=== PATIENT | female | born 1960 | race Caucasian/White ===

== ENCOUNTER → 2018-02-15 | Outpatient (CLI) | payer BC ==
[2018-02-15 10:51] LABS: Blood Urea Nitrogen 29 mg/dL (7-17)
--- NOTE | 2018-02-15 12:24 | MR ---
EXAMINATION TYPE: MR brain/orbits wo/w con DATE OF EXAM: 02/15/2018 COMPARISON: NONE HISTORY: Ischemic optic neuropathy, vision loss TECHNIQUE: Multiplanar, multisequence images of the brain and orbits is performed without and with IV contrast, utilizing 8.5 mL intravenous Gadavist . FINDINGS: Diffusion weighted images demonstrate no evidence of a recent infarct or other diffusion ab normality. There is no extra-axial fluid collection. Scattered hyperintensities are present on inve rsion recovery and T2-weighted sequences within the periventricular, pericallosal, subcortical white matter, there are approximately 40-50 lesions present. The ventricular system and cisternal spaces ar e normal in size and appearance. The brain volume is age appropriate, there is mild atrophy. Midline structures demonstrate normal morphology. The craniocervical junction appears within normal limits. Post contrast images demonstrate no abnormal enhancement. The dural venous sinuses appear pa tent. The visualized sinuses are remarkable for some mucosal thickening in the maxillary sinus, ethmo id air cells and the globes are intact. The orbits show symmetric appearance. No abnormal enhancement. IMPRESSION: Nonspecific white matter demyelination, consider multiple sclerosis in the appropriate cl inical setting, migraine headaches, hypertension, chronic small vessel ischemia and vasculitis. Mild sinus disease. Follow-up as indicated.
== END ==
LOC: RADMRIMAIN 10:19
PROVIDERS: ATTEND Ophthalmology
DX: H47.019 Ischemic optic neuropathy, unspecified eye (principal); H54.7 Unspecified visual loss
CPT/HCPCS: 82565; 84520; 70543; 70553; A9581

== ENCOUNTER → 2018-05-31 | Outpatient (CLI) | payer OTHER ==
--- NOTE | 2018-05-31 07:37 | MR ---
EXAMINATION TYPE: MR cervical spine wo con DATE OF EXAM: 05/31/2018 COMPARISON: None HISTORY: Diego arm and hand numbness, neck pain into shoulder blades TECHNIQUE: Multiplanar, multisequence images of the cervical spine were acquired. FINDINGS: The cervical spine vertebral bodies maintain normal vertebral body height and alignment. Th ere is multilevel disc desiccation. Posterior fossa is grossly unremarkable in its visualized portion s other than few prominent arachnoid granulations. Bone marrow signal is within normal limits. Cervic al spine signal is maintained. C2-C3: Very small central posterior disc osteophyte complex is seen as well as mild left neural bon inal narrowing secondary to uncovertebral hypertrophy and facet arthropathy. No right-sided neural fo raminal narrowing or spinal canal stenosis. C3-C4: There is a small broad-based disc bulge and small posterior disc osteophyte complex without sp inal canal stenosis or neural foraminal narrowing. C4-C5: There is uncovertebral hypertrophy, left greater than right and facet arthropathy in combinati on with a broad-based disc bulge creating mild spinal canal stenosis and mild right neural foraminal narrowing as well as moderate left neural foraminal narrowing. C5-C6: There is a left eccentric broad-based disc bulge, uncovertebral hypertrophy, and facet arthrop athy creating mild spinal canal stenosis, moderate left neural foraminal narrowing and minimal right neural foraminal narrowing. C6-C7: There is a left paracentral disc herniation extending into the lateral recess and left neural foramen creating moderate left neural foraminal narrowing and mild spinal canal stenosis abutting the ventral cervical cord and narrowing the ventral subarachnoid space. Right neural foramen is patent. C7-T1: There is a small annular tear and right paracentral disc herniation with only minimal narrowin g of the ventral subarachnoid space. No significant spinal canal stenosis or neural foraminal narrowi ng. Mild uncovertebral hypertrophy is seen on the left. IMPRESSION: 1. Left paracentral disc herniation at C6-C7 resulting in moderate left neural foraminal narrowing an d mild spinal canal stenosis. 2. Degenerative disc disease with broad-based disc bulges and uncovertebral hypertrophy as well as fa cet arthropathy at C4-C5 and C5-C6 resulting in mild spinal canal stenosis and moderate left neural f oraminal narrowing at these levels. 3. Small right paracentral disc herniation at C7-T1 without spinal canal stenosis or neural foraminal narrowing.
== END ==
LOC: RADMRIMAIN 06:01
PROVIDERS: ATTEND Psychiatry & Neurology Neurology
DX: M48.02 Spinal stenosis, cervical region (principal); M99.73 Connective tissue and disc stenosis of intervertebral foramina of lumbar region; M50.221 Other cervical disc displacement at C4-C5 level; M46.92 Unspecified inflammatory spondylopathy, cervical region
CPT/HCPCS: 72141

== ENCOUNTER → 2018-06-24 | Outpatient (CLI) | payer BC, OTHER ==
--- NOTE | 2018-06-24 15:01 | XR ---
EXAMINATION TYPE: XR chest 2V DATE OF EXAM: 06/24/2018 COMPARISON: Chest x-ray May 21, 2011 HISTORY: Shortness of breath for 2 years. TECHNIQUE: Frontal and lateral views of the chest are obtained. FINDINGS: There is no focal air space opacity, pleural effusion, or pneumothorax seen. The cardiac silhouette size is within normal limits. The osseous structures are intact. IMPRESSION: No acute cardiopulmonary process. No significant change from prior.
== END | disposition home or self-care (01) ==
LOC: RADXRMAIN 14:40
PROVIDERS: ATTEND Family Medicine
DX: R06.00 Dyspnea, unspecified (principal)
CPT/HCPCS: 71046

== ENCOUNTER → 2019-07-26 | Outpatient (CLI) | payer OTHER ==
--- NOTE | 2019-07-29 13:02 | MR ---
EXAMINATION TYPE: MR cervical spine wo/w con DATE OF EXAM: 07/26/2019 COMPARISON: MRI cervical spine 05/31/2018 HISTORY: Cervical disc herniation TECHNIQUE: Multiplanar, multisequence images of the cervical spine were acquired utilizing 10 mL intravenous Cecil avist gadolinium contrast. FINDINGS: Interval C4-C7 ACDF, with hardware would be better assessed by radiography or CT. Blooming artifact l imits assessment. Straightening of the normal cervical lordosis. No pathologic bone marrow signal abn ormalities given previously stated limitations. No cervical spinal cord signal abnormalities or abnormal enhancement. The right vertebral artery flow-void is not well-visualized, also present previously. C2-C3: Eccentric left posterior disc osteophyte complex impresses upon the ventral thecal sac but araujo s not contact or deform the cervical spinal cord. Neuroforamen are patent. C3-C4: Central canal zone disc protrusion contacts the ventral spinal cord, flattening it and uncover tebral spurs contribute to mild bilateral neural foraminal stenosis. C4-C5: Improved spinal canal patency with visualization of the subarachnoid space surrounding the spi nal cord. Uncovertebral spurs contribute to stable mild bilateral neuroforaminal stenosis. C5-C6: Improved spinal canal patency with visualization of the subarachnoid space surrounding the spi nal cord. Uncovertebral spurs contribute to stable moderate bilateral neural foraminal stenosis. C6-C7: Improved spinal canal patency with visualization of the subarachnoid space surrounding the spi nal cord; there is persistent left disc osteophyte complex present however. This finding, in conjunct ion with uncovertebral spurs contribute to mild right and moderate left neural foraminal stenosis, un changed. C7-T1: Eccentric right posterior disc osteophyte complex impresses upon the ventral thecal sac howeve r does not contact the cervical spinal cord. Unchanged from prior. Patent neuroforamen. IMPRESSION: 1. Postsurgical changes related to C4-C7 ACDF. There is improved patency of the cervical spinal canal at these levels. 2. New junctional central disc herniation at C3-C4 which contacts and mildly deforms the cervical spi nal cord. 3. Degenerative changes elsewhere are stable.
== END | disposition home or self-care (01) ==
LOC: RADMRIMAIN 10:40
PROVIDERS: ATTEND Psychiatry & Neurology Neurology
DX: M50.21 Other cervical disc displacement, high cervical region (principal); M47.812 Spondylosis without myelopathy or radiculopathy, cervical region; Z98.1 Arthrodesis status
CPT/HCPCS: 72156; A9585

== ENCOUNTER → 2019-10-07 | Outpatient (CLI) | payer OTHER ==
--- NOTE | 2019-10-08 10:13 | MM ---
Reason for exam: screening (asymptomatic). Last mammogram was performed 3 years and 6 months ago. History: Patient is postmenopausal and is nulliparous. Family history of breast cancer in sister at age 49. Physical Findings: A clinical breast exam by your physician is recommended on an annual basis and results should be correlated with mammographic findings. MG 3D Screening Mammo W/Cad Bilateral CC and MLO view(s) were taken. Prior study comparison: April 18, 2016, left breast MG 3d work up w/cad LT. April 13, 2016, bilateral MG screening mammo w CAD. The breast tissue is heterogeneously dense. This may lower the sensitivity of mammography. No suspicious abnormality. No significant changes when compared with prior studies. ASSESSMENT: Negative, BI-RAD 1 RECOMMENDATION: Routine screening mammogram of both breasts in 1 year.
== END | disposition home or self-care (01) ==
LOC: RADMAMWWP 13:24
PROVIDERS: ATTEND Family Medicine
DX: Z12.31 Encounter for screening mammogram for malignant neoplasm of breast (principal)
CPT/HCPCS: 77063; 77067

== ENCOUNTER → 2021-05-05 | Outpatient (CLI) | payer MEDICARE ==
--- NOTE | 2021-05-05 17:10 | XR ---
EXAMINATION TYPE: XR lumbar spine 2 or 3V DATE OF EXAM: 05/05/2021 COMPARISON: None HISTORY: Lumbago TECHNIQUE: 3 view lumbar spine FINDINGS: There are 5 lumbar-type vertebral bodies. The pedicles are intact. There is attempted sacra lization of L5 on the left. Degenerative disc changes are present L3-4 L4-5. Remaining disc heights a ppear preserved. Vertebral body heights are preserved. Alignment is normal. IMPRESSION: 1. Degenerative disc changes L3-4 L4-5.
== END | disposition home or self-care (01) ==
LOC: RADXRMAIN 13:07
PROVIDERS: ATTEND Family Medicine
DX: M47.816 Spondylosis without myelopathy or radiculopathy, lumbar region (principal)
CPT/HCPCS: 72100

== ENCOUNTER → 2021-08-30 | Outpatient (CLI) | payer MEDICARE ==
--- NOTE | 2021-08-30 13:53 | US ---
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 EXAM MEASUREMENTS: RIGHT: Peak Systolic Velocity (PSV) cm/sec ----- Right CCA: 82.3 ----- Right ICA: 79.2 ----- Right ECA: 94.7 ICA/CCA ratio: 1.0 RIGHT: End Diastole cm/sec ----- Right CCA: 16.9 ----- Right ICA: 26.3 ----- Right ECA: 12.3 LEFT: Peak Systolic Velocity (PSV) cm/sec ----- Left CCA: 77.6 ----- Left ICA: 74.3 ----- Left ECA: 107.6 ICA/CCA ratio: 1.0 LEFT: End Diastole cm/sec ----- Left CCA: 19.3 ----- Left ICA: 27.0 ----- Left ECA: 18.7 VERTEBRALS (direction of flow): Right Vertebral: Antegrade Left Vertebral: Antegrade Rhythm: Normal Segovia scale images show mild eccentric plaque bilateral carotid bulb level No elevated velocities IMPRESSION: No hemodynamically significant stenosis in either internal carotid artery. Criteria for Assigning % of Stenosis / Diameter reduction (Estimation based on the indirect measurements of the internal carotid artery velocities (ICA PSV). 1. Normal (no stenosis)=ICA PSV < 125 cm/s: ratio < 2.0: ICA EDV<40 cm/s. 2. Less than 50% stenosis=ICA PSV < 125 cm/s: ratio < 2.0: ICA EDV<40 cm/s. 3. 50 to 69% stenosis=ICA PSV of 125 to 230 cm/s: ration 2.0 ? 4.0: ICA EDV 40-100 cm/s. 4. Greater than 70% stenosis to near occlusion= ICA PSV > 230 cm/s: ratio > 4.0: ICA EDV > 100 cm/s. 5. Near occlusion= ICA PSV velocities may be low or undetectable: variable ratio and ICA EDV. 6. Total occlusion=unable to detect flow.
== END | disposition home or self-care (01) ==
LOC: RADUSWWP 11:59
PROVIDERS: ATTEND Ophthalmology
DX: I65.23 Occlusion and stenosis of bilateral carotid arteries (principal)
CPT/HCPCS: 93880

== ENCOUNTER → 2021-11-03 | Outpatient (CLI) | payer MEDICARE ==
--- NOTE | 2021-11-03 10:23 | US ---
EXAMINATION TYPE: US abdomen complete DATE OF EXAM: 11/03/2021 COMPARISON: NONE CLINICAL HISTORY: R10.13 EPIGASTRIC PAIN. EXAM MEASUREMENTS: Liver Length: 14.9 cm Gallbladder Wall: 0.3 cm CBD: 0.3 cm Spleen: 8.4 cm Right Kidney: 11.5 x 4.5 x 4.4 cm Left Kidney: 11.3 x 5.8 x 4.7 Pancreas: Tail obscured by overlying bowel gas Liver: wnl Gallbladder: stone Evidence for sonographic Ko's sign: no CBD: wnl Spleen: wnl Right Kidney: portions visualized wnl, somewhat obscure by overlying bowel gas Left Kidney: portions visualized wnl, somewhat obscure by overlying bowel gas Upper IVC: wnl Abd Aorta: distal and bifurcation obscured by overlying bowel, arthrosclerotic changes noted The liver is homogenous. The intrahepatic portion of the IVC and proximal abdominal aorta are within normal limits. There is no evidence of cholelithiasis. Common bile duct is unremarkable. The visu alized portions of the pancreas are homogenous. The spleen is unremarkable. Kidneys are symmetric a nd free of hydronephrosis. No renal lesions are seen. IMPRESSION: No distinct abnormality appreciated.
== END | disposition home or self-care (01) ==
LOC: RADUSWWP 09:33
PROVIDERS: ATTEND Family Medicine
DX: R10.13 Epigastric pain (principal)
CPT/HCPCS: 76700

== ENCOUNTER → 2022-03-23 | Outpatient (CLI) | payer MEDICARE, OTHER ==
--- NOTE | 2022-03-24 06:32 | US ---
EXAMINATION TYPE: US pelvic complete DATE OF EXAM: 03/23/2022 COMPARISON: NONE CLINICAL HISTORY: R11.0 NAUSEA. Nausea x couple years, endometriosis, no pregnancies TECHNIQUE: . Transabdominal sonographic images of the pelvis were acquired. Date of LMP: EXAM MEASUREMENTS: Uterus: 5.6 x 2.5 x 3.6 cm Endometrial Stripe: 0.4 cm Right Ovary: 3.0 x 1.4 x 2.8 cm Left Ovary: 3.0 x 1.8 x 2.1 cm 1. Uterus: anteverted 2. Endometrium: wnl 3. Right Ovary: wnl 4. Left Ovary: wnl 5. Bilateral Adnexa: wnl 6. Posterior cul-de-sac: wnl IMPRESSION: Unremarkable transabdominal pelvic ultrasound in postmenopausal female.
== END | disposition home or self-care (01) ==
LOC: RADUSWWP 15:23
PROVIDERS: ATTEND Family Medicine
DX: R11.0 Nausea (principal); Z78.0 Asymptomatic menopausal state
CPT/HCPCS: 76856

== ENCOUNTER → 2022-09-08 | Outpatient (CLI) | payer MEDICARE, OTHER ==
--- NOTE | 2022-09-08 14:36 | MR ---
MR left humerus HISTORY: Palpable lump, benign lipomatosis neoplasia of skin Multiplanar multisequence and postcontrast images obtained through the region of the proximal and mid humerus, patient received 19 cc gadolinium based IV Correlation ultrasound 07/20/2022 At the level of the upper portion of the left upper extremity anteriorly there is a mass measuring ap proximately 9 cm x 6.8 x 4.8 cm which follows fat signal on all pulse sequences. No significant abnor mal enhancement or soft tissue component. Bone marrow signal is maintained. IMPRESSION: Findings consistent with lipoma.
== END | disposition home or self-care (01) ==
LOC: RADMRIMAIN 07:52
PROVIDERS: ATTEND Surgery Plastic and Reconstructive Surgery
DX: D17.22 Benign lipomatous neoplasm of skin and subcutaneous tissue of left arm (principal)
CPT/HCPCS: 73220; A9585

== ENCOUNTER → 2022-09-18 | Outpatient (CLI) | payer MEDICARE, OTHER ==
--- NOTE | 2022-09-19 05:07 | MR ---
EXAMINATION TYPE: MR cervical spine wo con DATE OF EXAM: 09/18/2022 COMPARISON: 07/26/2019 HISTORY: Neck pain, pain & numbness throughout entire body and extremities, history of surgery Multiplanar multiecho imaging of the cervical spine without contrast. The cervical vertebra have normal alignment. There is metal artifact from anterior fusion surgery fro m 4 to C7. There is mild narrowing of disc spaces from C4 to C7. Cervical cord shows normal signal pa ttern. No edema. There are small posterior disc bulging and herniation at C3-4. Spinal canal measures 8 mm at C3-4. There is also posterior disc bulging and herniation at C6-7 and the canal measures 8 m m. No significant spinal stenosis. There is developmentally adequate spinal canal. The brainstem is i ntact. No compression fracture. No evidence of cervical paraspinal mass. IMPRESSION: Posterior disc bulging and herniation at C3-4 and C6-7 without much change compared to old exam. No s jessi stenosis. Multilevel fusion surgery. No fracture.
== END | disposition home or self-care (01) ==
LOC: RADMRIMAIN 21:15
PROVIDERS: ATTEND Family Medicine
DX: M50.323 Other cervical disc degeneration at C6-C7 level (principal)
CPT/HCPCS: 72141

== ENCOUNTER → 2023-07-11 | Outpatient (CLI) | payer MEDICARE, OTHER ==
[2023-07-11 10:52] VITALS: BP 147/80; PULSE 92; RESP 15; TEMP 97.5
--- NOTE | 2023-07-11 14:41 | P.PAINPG ---
PQRS Measure Charge Sheet Comment: HISTORY OF PRESENT ILLNESS: 63 yr old female as a referral from Dr Samano presents today w severe and chronic LBP secondary to DDD, spondylosis and facet arthropathy without myelopathy for evaluation. Pt states pain level is provoked at 6/10 in intensity, constant, localized in the lower lumbar spine, achy, burning in character w shooting pain towards the BL hips and LEs. Pain is provoked by lifting, bending, standing, walking. Pain is alleviated by medications (Mobic), topical, LESIs in margot past, heat, ice, PT in 2020 but is currently $90/ wk and too expensive for pt to maintain, physician guided home exercise regimen 3 times weekly since 2020, massage weekly since 2020, repositioning, sitting and rest. Oswestry axial pain score at 20. PMH: OA, HTN, Hyperlipidemia, DM II, GERD, Vitamin D Deficiency PSH: EGD/ Colonoscopy (2020), Cervical Discectomy, R Finger Surgery SH: 12 yrs of ETOH sobriety, Dipping Tobacco use, Cannabis use FH: CAD, DM II, CA All: See list Meds: See list REVIEW OF ORGAN SYSTEMS: CONSTITUTIONAL: No fevers or chills. No recent weight loss. NEUROLOGICAL: + numbness and tingling along the distal extremities. No seizure disorders or headaches. MUSCULOSKELETAL: + pain PSYCHIATRIC: Denies current depression or suicidal thoughts. Physical Examinations : Constitutional : Cooperative , not in acute distress . Neurologic : Cranial nerve II to XII intact. No focal neurological deficits. Psychiatric : alert & oriented x 3. Matching mood & appropriate affect. Judgment & insight intact. Musculoskeletal : Cervical Spine Motor strength in the deltoid and biceps: Normal right side. Normal Left side Motor strength biceps and the wrist extensors: Normal right side . Normal left side Motor strength in the triceps muscle: Normal right side. Normal left side Deep tendon reflexes: Normal at the biceps. Normal at Brachioradialis. Normal at triceps Vertebral body tenderness to deep palpation over Cervical facet loading test: positive bilaterally Spurling test: positive bilaterally Neck distraction test: positive bilaterally Ti sign: positive bilaterally Lumbar spine Motor strength lower extremities ,thigh and legs 5/5 Right side , 5/5 Left side Deep tendon reflexes : Normal Knee Jerk. Normal Ankle Jerk Vertebral body tenderness over L3 Figueroa Test positive Lumbar facet Loading Test: positive Right / positive Left Range of motion of the lumbar spine Flexion 30 degrees, extension 10 degrees Straight Leg Raise test: Left/ Right positive at degree Cayetano test: positive right / positive left. Severe tenderness over the Sacroiliac joint on the Right / Left sides Gaenslen test: positive bilaterally Seated flexion test: positive bilaterally. Sacral spine : Severe tenderness over the Sacroiliac joint: right side / left side Range of motion: Flexion of the lumbar spine <60 degrees Range of motion: Extension of the lumbar spine <20 degrees Gaenslen's Test positive Jatinder's Test positive Cayetano test: positive right side / left side Thigh Thrust Test Sacral Thrust Test Imaging: None on file Assessment/ Plan : Lumbar DDD Recommendation of lumbar x ray M 51.36 May need additional testing if indicated. All questions answered. I have spent greater than 30 minutes on patient care today. Dr Segovia was available by phone for the evaluation of this patient. The time was used to review the medical records including relevant urine studies and Prescription history (MAPs), review of the available imaging, evaluation and examination of the patient, coordination of care with the medical staff and if applicable referring physicians, as well as creation of the medical record PQRS Narrative: Smoking Status Former smoker Home Medications: Ambulatory Orders Aspirin 325 mg PO HS 05/17/18 Brimonidine Tartrate [Alphagan P 0.1% Ophth Soln] 1 drops BOTH EYES BID 05/17/18 FLUoxetine HCL [PROzac] 40 mg PO DAILY 05/17/18 Hydrocodone/Acetaminophen [Hydrocodon-Acetaminophn 10-325] 1 tab PO Q6H PRN Lisinopril-Hctz 20-25 mg [Zestoretic 20-25] 1 tab PO DAILY 05/17/18 Dulaglutide [Trulicity] 0.75 mg SQ MO 11/23/21 Meloxicam [Mobic] 15 mg PO DAILY 11/23/21 Ondansetron [Zofran] 4 mg PO Q12HR PRN 11/23/21 Simvastatin [Zocor] 20 mg PO HS 11/23/21 metFORMIN HCL ER [Glucophage XR] 750 mg PO BID 11/23/21 Controlled Substance Measures - Controlled Substance Measures Is patient prescribed a controlled substance at discharge?: No
--- NOTE | 2023-07-11 23:48 | XR ---
EXAMINATION TYPE: XR lumbar spine 2 or 3V DATE OF EXAM: 07/11/2023 COMPARISON: 05/05/2021 HISTORY: Pain TECHNIQUE: 3 view lumbar spine FINDINGS: There are 5 lumbar-type vertebral bodies. Pedicles are intact. Mild scoliosis is present in stable from comparison. Degenerative disc changes with loss of disc height are present L2-3 through L5-S1. No spondylolisthesis is evident. The body heights are preserved. IMPRESSION: 1. Diffuse degenerative disc changes throughout the lumbar spine greatest at L3-4 L4-5.
== END ==
LOC: PNWHC3 10:12
PROVIDERS: ATTEND Specialist
DX: M51.36 Other intervertebral disc degeneration, lumbar region (principal); I10 Essential (primary) hypertension; E78.5 Hyperlipidemia, unspecified; E11.9 Type 2 diabetes mellitus without complications; K21.9 Gastro-esophageal reflux disease without esophagitis; Z87.891 Personal history of nicotine dependence; Z79.82 Long term (current) use of aspirin; Z79.84 Long term (current) use of oral hypoglycemic drugs
CPT/HCPCS: 72100; G0463; 99211

== ENCOUNTER → 2023-07-24 | Outpatient (CLI) | payer MEDICARE, OTHER ==
--- NOTE | 2023-07-25 10:09 | MM ---
Reason for Exam: Screening (asymptomatic). Last mammogram was performed 3 year(s) and 9 month(s) ago. Patient History: Menarche at age 14. Patient has no children. Postmenopausal. Sister had breast cancer, age 49. Risk Values: Cristela 5 year model risk: 2.8%. NCI Lifetime model risk: 11.7%. Prior Study Comparison: 04/13/2016 Bilateral Screening Mammogram, [facility]. 04/18/2016 Left Diagnostic Mammogram, [facility]. 10/07/2019 Bilateral Screening Mammogram, [facility]. Tissue Density: The breast tissue is heterogeneously dense. This may lower the sensitivity of mammography. Findings: Analyzed By CAD. There is no suspicious group of microcalcifications or new suspicious mass in either breast. Overall Assessment: Negative, BI-RAD 1 Management: Screening Mammogram of both breasts in 1 year. A clinical breast exam by your physician is recommended on an annual basis and results should be correlated with mammographic findings. Note on Cristela scores and lifetime risk: 1. A Cristela score greater than 3% is considered moderate risk. If this is the case, consider specialist referral to assess eligibility for a risk reducing agent. If overall lifetime risk for the development of breast cancer is 20% or higher, the patient may qualify for future screening with alternating mammogram and breast MRI. Electronically signed and approved by: Kishore Melendrez D.O.
== END | disposition home or self-care (01) ==
LOC: RADMAMWWP 13:10
PROVIDERS: ATTEND Family Medicine
DX: Z12.31 Encounter for screening mammogram for malignant neoplasm of breast (principal); Z78.0 Asymptomatic menopausal state; Z80.3 Family history of malignant neoplasm of breast
CPT/HCPCS: 77063; 77067

== ENCOUNTER → 2023-07-27 | Outpatient (CLI) | payer MEDICARE, OTHER ==
--- NOTE | 2023-07-30 20:11 | MR ---
EXAMINATION TYPE: MR lumbar spine wo con DATE OF EXAM: 07/27/2023 COMPARISON: None HISTORY: 63-year-old female L5 1.36, Chronic lower back pain, BLE radiculopathy. TECHNIQUE: Multiplanar, multisequence images of the lumbar spine were acquired without IV contrast. FINDINGS: Vertebral body heights are preserved. Advanced hypertrophic facet arthropathy mid to lower lumbar spine. There is a degenerative grade 1, nearly grade 2 anterolisthesis at L4-L5. Moderate degenerative disc disease with desiccated, narrowed, and bulging disks throughout the lumbar spine. Ligamentum flavum thickening and facet arthropathy mid to lower lumbar spine. Overall changes result in a moderate to severe focal spinal canal stenosis at L4-L5. Disc bulging imp resses onto the ventral thecal sac and multiple other levels without additional significant spinal ca nal stenosis. On the right, changes result in moderate neuroforaminal stenosis at L4-L5 and [id number] at L3- L4. On the left, changes result in mild neuroforaminal stenosis at L2-L5 levels. No prevertebral or paravertebral soft tissue abnormality seen. IMPRESSION: 1. Moderate multilevel degenerative disc disease. 2. Hypertrophic facet arthropathy mid to lower lumbar spine with degenerative grade 1, nearly grade 2 anterolisthesis at L4-L5. 3. Overall changes at L4-L5 result in a moderate to severe focal spinal canal stenosis. 4. Moderate right-sided neuroforaminal stenosis at L4-L5. Additional variable mild neural foraminal n arrowing as outlined above.
== END | disposition home or self-care (01) ==
LOC: RADMRIMAIN 12:58
PROVIDERS: ATTEND Specialist
DX: M51.16 Intervertebral disc disorders with radiculopathy, lumbar region (principal); M99.73 Connective tissue and disc stenosis of intervertebral foramina of lumbar region; M48.061 Spinal stenosis, lumbar region without neurogenic claudication; M43.16 Spondylolisthesis, lumbar region; M47.26 Other spondylosis with radiculopathy, lumbar region
CPT/HCPCS: 72148

== ENCOUNTER → 2023-08-09 | Outpatient (CLI) | payer MEDICARE, OTHER ==
--- NOTE | 2023-08-09 16:08 | P.PAINPG ---
PQRS Measure Charge Sheet Comment: HISTORY OF PRESENT ILLNESS: 63 yr old female presents today w severe and chronic LBP secondary to DDD, spondylosis and facet arthropathy without myelopathy for evaluation. Pt states pain level is provoked at 8/10 in intensity, constant, localized in the lower lumbar spine, sharp in character w shooting pain towards the BL hips and LEs. Pain is provoked by lifting, bending, standing, walking. Pain is alleviated by medications, topical, LESIs in the past, heat, ice, PT in 2020 but is currently $90/ wk and too expensive for pt to maintain, physician guided home exercise regimen 3 times weekly since 2020, massage weekly since 2020, repositioning, sitting and rest. Oswestry axial pain score at 20. Interventional procedures include DENIES Medications include Mobic REVIEW OF ORGAN SYSTEMS: CONSTITUTIONAL: No fevers or chills. No recent weight loss. NEUROLOGICAL: + numbness and tingling along the distal extremities. No seizure disorders or headaches. MUSCULOSKELETAL: + pain PSYCHIATRIC: Denies current depression or suicidal thoughts. Physical Examinations : Constitutional : Cooperative , not in acute distress . Neurologic : Cranial nerve II to XII intact. No focal neurological deficits. Psychiatric : alert & oriented x 3. Matching mood & appropriate affect. Judgment & insight intact. Musculoskeletal : Cervical Spine Motor strength in the deltoid and biceps: Normal right side. Normal Left side Motor strength biceps and the wrist extensors: Normal right side . Normal left side Motor strength in the triceps muscle: Normal right side. Normal left side Deep tendon reflexes: Normal at the biceps. Normal at Brachioradialis. Normal at triceps Vertebral body tenderness to deep palpation over Cervical facet loading test: positive bilaterally Spurling test: positive bilaterally Neck distraction test: positive bilaterally Ti sign: positive bilaterally Lumbar spine Motor strength lower extremities ,thigh and legs 5/5 Right side , 5/5 Left side Deep tendon reflexes : Normal Knee Jerk. Normal Ankle Jerk Vertebral body tenderness over L4 Figueroa Test positive Lumbar facet Loading Test: positive Right / positive Left Range of motion of the lumbar spine Flexion 30 degrees, extension 10 degrees Straight Leg Raise test: Left/ Right positive at degree Cayetano test: positive right / positive left. Severe tenderness over the Sacroiliac joint on the Right / Left sides Gaenslen test: positive bilaterally Seated flexion test: positive bilaterally. Sacral spine : Severe tenderness over the Sacroiliac joint: right side / left side Range of motion: Flexion of the lumbar spine <60 degrees Range of motion: Extension of the lumbar spine <20 degrees Gaenslen's Test positive Jatinder's Test positive Cayetano test: positive right side / left side Thigh Thrust Test Sacral Thrust Test Imaging: MRI non contrast of the lumbar spine from 07/30/23 reviewed Assessment/ Plan : Lumbar DDD Recommendation of JEVON L4-L5 #1. May need a series of injections for optimal pain relief. Risks, benefits of procedure discussed and pt verbalized understanding. Protocol for discontinuation/ continuation of medications hortencia procedure discussed. All questions answered. I have spent greater than 30 minutes on patient care today. Dr Segovia was available by phone for the evaluation of this patient. The time was used to review the medical records including relevant urine studies and Prescription history (MAPs), review of the available imaging, evaluation and examination of the patient, coordination of care with the medical staff and if applicable referring physicians, as well as creation of the medical record PQRS Narrative: Smoking Status Former smoker Hx Alcohol Use (MH) No Home Medications: Ambulatory Orders Aspirin 325 mg PO HS 05/17/18 Brimonidine Tartrate [Alphagan P 0.1% Ophth Soln] 1 drops BOTH EYES BID 05/17/18 FLUoxetine HCL [PROzac] 40 mg PO DAILY 05/17/18 Lisinopril-Hctz 20-25 mg [Zestoretic 20-25] 1 tab PO DAILY 05/17/18 Dulaglutide [Trulicity] 0.75 mg SQ MO 11/23/21 Ondansetron [Zofran] 4 mg PO Q12HR PRN 11/23/21 Simvastatin [Zocor] 20 mg PO HS 11/23/21 metFORMIN HCL ER [Glucophage XR] 750 mg PO BID 11/23/21 Controlled Substance Measures - Controlled Substance Measures Is patient prescribed a controlled substance at discharge?: No
[2023-08-09 16:09] VITALS: BP 136/72; PULSE 95; RESP 16; TEMP 98.2
== END ==
LOC: PNWHC3 13:57
PROVIDERS: ATTEND Specialist
DX: M51.36 Other intervertebral disc degeneration, lumbar region (principal); Z87.891 Personal history of nicotine dependence; Z79.82 Long term (current) use of aspirin
CPT/HCPCS: 99211

== ENCOUNTER 2023-08-28 07:40 | Day surgery (SDC) | payer MEDICARE, OTHER ==
[2023-08-28] MEDS ORDERED: LACTATED RINGERS 1,000 ML IV SCH (07:45)
[2023-08-28 08:28] LABS: Glucose,Whole Blood 113 mg/dL (70-110)
[2023-08-28 08:29] VITALS: RESP 16; TEMP 96.9
[2023-08-28] MEDS ORDERED: IOPAMIDOL M200 10 ML VIAL ONE (09:09)
[2023-08-28] MEDS ORDERED: methylPREDNISolone ACETATE 40 MG/ML 1 ML VIAL ONE (09:09)
--- NOTE | 2023-08-28 09:16 | P.PCN ---
Date of Procedure: 08/28/23 Description of Procedure: Procedure: 1. L4-L5 Epidural steroid injection under fluoroscopic guidance, 2. Lumbar epidurogram PREOPERATIVE DIAGNOSIS: Lumbar degenerative disc disease, and Lumbar radiculopathy. POSTOPERATIVE DIAGNOSIS: Lumbar degenerative disc disease, and Lumbar r adiculopathy. SURGEON: Malik Whitney ANESTHESIA: Local with 1% lidocaine, and IV sedation: None EBL: None. Specimen removed: None Fluoroscopic image: saved to electronic medical records PROCEDURE INDICATION: The patient had history of Lumbar degenerative disc disease and Lumbar radiculopathy. Failed to conservative therapy. Presented for epidural steroid injection. PROCEDURE DESCRIPTION: The patient was seen and identified in the preoperative area. Risks, benefits, complications, and alternatives were discussed with the patient. The patient agreed to proceed with the procedure and signed the consent. IV was started, and vital signs were stable. Patient was taken to the procedure area, and time out was completed. The patient was placed in the prone position on procedure table and a pillow was placed under the abdomen to reduce lumbar lordosis. The lumbosacral area was prepped and draped in the usual sterile fashion. Critical pause was taken. Vital signs were closely monitored during the procedure. Using anterior-posterior fluoroscopy, the L4-L5 interlaminar space was identified, and skin and deeper tissues were localized with 1% lidocaine. Using anterior-posterior fluoroscopy, lateral fluoroscopy, and rryg-[id number] technique, a 20 gauge 3.5 Tuohy epidural needle entered the epidural space. After negative aspiration of CSF and blood with no paresthesias, 2 ml of [id number] contrast dye was injected and an excellent epidurogram was seen. Again after negative aspiration of CSF and blood with no paresthesias, 8 mL of block solution was injected into the epidural space. Block solution contained 40 mg of Depo-Medrol, and 7 mL of preservative-free normal saline. Needle was withdrawn intact, skin was cleansed, and bandages were applied. COMPLICATIONS: None. DISPOSITION / PLANS: The patient was placed in a supine position and transferred to the recovery area in a stable condition for observation. Patient was discharged from the recovery room after meeting discharge criteria. Home discharge instructions given to the patient by the staff. The patient was reexamined prior to discharge. The patient will schedule a follow up in the clinic in 4 weeks.
[2023-08-28 09:39] VITALS: BP 128/79; PULSE 61
--- NOTE | 2023-08-28 15:37 | FL ---
Intraoperative/procedural fluoroscopic services were provided. Total fluoroscopy time is 3 seconds wi th a total of 2 submitted images to PACS. Please see the operative/procedural note for further detail s. DAP: [id number] [id number]
== END 2023-08-28 09:38 | disposition home or self-care (01) ==
LOC: ORPAIN 07:40
DX: M51.16 Intervertebral disc disorders with radiculopathy, lumbar region (principal); I10 Essential (primary) hypertension; E11.9 Type 2 diabetes mellitus without complications; E78.00 Pure hypercholesterolemia, unspecified; F17.210 Nicotine dependence, cigarettes, uncomplicated; F12.90 Cannabis use, unspecified, uncomplicated; Z79.82 Long term (current) use of aspirin; Z79.84 Long term (current) use of oral hypoglycemic drugs; Z79.899 Other long term (current) drug therapy; Z98.890 Other specified postprocedural states; Z98.1 Arthrodesis status
CPT/HCPCS: 62323; J1030; Q9966

== ENCOUNTER → 2023-09-20 | Outpatient (CLI) | payer MEDICARE, OTHER ==
[2023-09-20 20:32] LABS: Albumin 4.8 d/dL (3.8-4.9); Protein, Total 7.1 d/dL (6.2-8.2)
== END | disposition home or self-care (01) ==
LOC: LABWHC1 13:27
PROVIDERS: ATTEND Family Medicine
DX: E83.52 Hypercalcemia (principal); E88.09 Other disorders of plasma-protein metabolism, not elsewhere classified
CPT/HCPCS: 36415; 83970; 84165

== ENCOUNTER → 2023-09-24 | Outpatient (CLI) | payer MEDICARE, OTHER ==
--- NOTE | 2023-09-24 14:45 | P.PN ---
Subjective Progress Note Date: 09/24/23 63 yr old female presents today w severe and chronic LBP secondary to DDD, spondylosis and facet arthropathy without myelopathy for evaluation. Pt states pain level is provoked at 8/10 in intensity, constant, localized in the lower lumbar spine, sharp in character w shooting pain towards the BL hips and LEs. Pain is provoked by lifting, bending, standing, walking. Pain is alleviated by medications, topical, LESIs recently patient reported that she get good benefit from it, heat, ice, physician guided home exercise regimen 3 times weekly since 2020, massage weekly since 2020, repositioning, sitting and rest. Patient reported that her activity of daily livings improved since the injection, she get a TENS unit from a friend and she will try it at home Interventional procedures include DENIES Medications include Mobic REVIEW OF ORGAN SYSTEMS: CONSTITUTIONAL: No fevers or chills. No recent weight loss. NEUROLOGICAL: + numbness and tingling along the distal extremities. No seizure disorders or headaches. MUSCULOSKELETAL: + pain PSYCHIATRIC: Denies current depression or suicidal thoughts. Physical Examinations : Constitutional : Cooperative , not in acute distress . Neurologic : Cranial nerve II to XII intact. No focal neurological deficits. Psychiatric : alert & oriented x 3. Matching mood & appropriate affect. Judgment & insight intact. Musculoskeletal : Imaging: MRI non contrast of the lumbar spine from 07/30/23 reviewed Assessment/ Plan : Lumbar DDD . 2-lumbar spondylosis with lumbar facet arthropathy without myelopathy Pain improved after lumbar epidural steroid injection. Patient wants to follow-up in the pain clinic when necessary PQRS Narrative: Smoking Status Former smoker Hx Alcohol Use (MH) No Home Medications: Ambulatory Orders Aspirin 325 mg PO HS 05/17/18 Brimonidine Tartrate [Alphagan P 0.1% Ophth Soln] 1 drops BOTH EYES BID 05/17/18 FLUoxetine HCL [PROzac] 40 mg PO DAILY 05/17/18 Lisinopril-Hctz 20-25 mg [Zestoretic 20-25] 1 tab PO DAILY 05/17/18 Dulaglutide [Trulicity] 0.75 mg SQ MO 11/23/21 Ondansetron [Zofran] 4 mg PO Q12HR PRN 11/23/21 Simvastatin [Zocor] 20 mg PO HS 11/23/21 metFORMIN HCL ER [Glucophage XR] 750 mg PO BID 11/23/21 Controlled Substance Measures - Controlled Substance Measures Is patient prescribed a controlled substance at discharge?: No Objective - Vital Signs Vital signs: Vital Signs Temp 98.7 F 09/24/23 14:38 Pulse 88 09/24/23 14:38 Resp 15 09/24/23 14:38 BP 155/88 09/24/23 14:38 Pulse Ox 99 09/24/23 14:38 FiO2 Intake & Output 09/23/23 09/24/23 09/24/23 18:59 06:59 18:59 Weight 76.204 kg
[2023-09-24 15:11] VITALS: BP 155/88; PULSE 88; RESP 15; TEMP 98.7
== END ==
LOC: PNWHC3 13:51
PROVIDERS: ATTEND Specialist
DX: M51.36 Other intervertebral disc degeneration, lumbar region (principal); M47.816 Spondylosis without myelopathy or radiculopathy, lumbar region; Z87.891 Personal history of nicotine dependence; Z79.82 Long term (current) use of aspirin
CPT/HCPCS: 99211

== ENCOUNTER → 2024-02-01 | Outpatient (CLI) | payer MEDICARE, OTHER ==
[2024-02-01 18:20] LABS: Basophils # (A) 0.06 X 10*3/uL (0.00-0.10); Basophils % (A) 0.8 %; Eosinophils # (A) 0.08 X 10*3/uL (0.04-0.35); Eosinophils % (A) 1.1 %; HCT 43.4 % (37.2-46.3); HGB 14.2 g/dL (12.0-15.0); Lymphocytes # (A) 1.67 X 10*3/uL (0.90-5.00); Lymphocytes % (A) 22.1 %; MCH 30.2 pg (27.0-32.0); MCHC 32.7 g/dL (32.0-37.0); MCV 92.3 FL (80.0-97.0); Mean Platelet Volume 10.4 FL (9.5-12.2); Monocytes # (A) 0.43 X 10*3/uL (0.20-1.00); Monocytes % (A) 5.7 %; NRBC Per 100 WBC 0 X 10*3/uL (0.00-0.01); Platelet Count 263 X 10*3/uL (140-440); RDW 12.9 % (11.5-14.5); WBC 7.56 X 10*3/uL (4.50-10.00)
[2024-02-01 18:36] LABS: Erythrocyte Sedimentation Rate 2 mm/Hr (0-30)
== END | disposition home or self-care (01) ==
LOC: LABWHC1 11:39
PROVIDERS: ATTEND Ophthalmology
DX: E11.3293 Type 2 diabetes mellitus with mild nonproliferative diabetic retinopathy without macular edema, bilateral (principal); H34.81 Central retinal vein occlusion
CPT/HCPCS: 36415; 85025; 85652

== ENCOUNTER → 2025-02-09 | Outpatient (CLI) | payer MEDICARE, OTHER ==
--- NOTE | 2025-02-09 14:48 | MM ---
Reason for Exam: Screening (asymptomatic). Last mammogram was performed 1 year(s) and 7 month(s) ago. Patient History: Menarche at age 14. Patient has no children. Postmenopausal. Sister had breast cancer, age 49. Risk Values: Cristela 5 year model risk: 2.9%. NCI Lifetime model risk: 11.3%. Prior Study Comparison: 04/18/2016 Left Diagnostic Mammogram, [facility]. 10/07/2019 Bilateral Screening Mammogram, [facility]. 07/24/2023 Bilateral MG 3D screening mammo w/cad, [facility]. Tissue Density: The breasts are heterogeneously dense, which may obscure small masses. Findings: Analyzed By CAD. There is no suspicious new group of microcalcifications or new suspicious mass in either breast. Overall Assessment: Negative, BI-RAD 1 Management: Screening Mammogram of both breasts in 1 year. Some advise annual bilateral breast ultrasound in patient's with background dense tissue. Patient should continue monthly self-breast exams. A clinical breast exam by your physician is recommended on an annual basis. This exam should not preclude additional follow-up of suspicious palpable abnormalities. Note on Cristela scores and lifetime risk: 1. A Cristela score greater than 3% is considered moderate risk. If this is the case, consider specialist referral to assess eligibility for a risk reducing agent. 2. If overall lifetime risk for the development of breast cancer is 20% or higher, the patient may qualify for future screening with alternating mammogram and breast MRI. [facility], , 02/09/2025 2:44 PM. Electronically signed and approved by: Jeremy Quiroz M.D.
== END | disposition home or self-care (01) ==
LOC: RADMAMWWP 14:19
PROVIDERS: ATTEND Family Medicine
DX: Z12.31 Encounter for screening mammogram for malignant neoplasm of breast (principal); R92.333 Mammographic heterogeneous density, bilateral breasts; Z78.0 Asymptomatic menopausal state; Z80.3 Family history of malignant neoplasm of breast
CPT/HCPCS: 77063; 77067